=== PATIENT | male | born 1990 | race African-American/Black ===

== ENCOUNTER 2019-02-04 21:02 | Inpatient (IN) | payer SELFPAY ==
[~2019-02-04] VITALS: Ht 170.2 cm; Wt 68.0 kg
--- NOTE | 2019-02-04 21:26 | NUR ---
DR. MARIN IN TRIAGE FOR EVALUATION OF PT. NO ACUTE DISTRESS NOTED AT THIS TIME. PT HAS NO FURTHER QUESTIONS AT THIS TIME.
[2019-02-04] MEDS ORDERED: SODIUM CHLORIDE 0.9% 1000ML 1,000 ML IV SCH ×2 (21:45→23:15)
[2019-02-04 22:03] LABS: BASOPHILS # (AUTO) 0.1 (0.0-0.1); BASOPHILS % 0.4 % (0.0-1.0); EOSINOPHILS % 0.3 % (0.0-6.0); HEMATOCRIT 39.5 % (38.2-49.6); HEMOGLOBIN 13.4 g/dL (14.0-18.0); LYMPHOCYTES # (AUTO) 1.1 (1.0-3.2); MEAN CORPUSCULAR HEMOGLOBIN 30.5 pg (28-32); MEAN CORPUSCULAR HGB CONC 33.9 g/dL (31-35); MONOCYTES # (AUTO) 0.8 (0.2-0.8); MONOCYTES % 6.3 % (4.4-11.3); NEUTROPHILS # (AUTO) 10.4 (2.1-6.9); NEUTROPHILS % 83.5 % (38.7-80.0); PLATELET COUNT 317 x10e3/uL (140-360); RED BLOOD COUNT 4.39 x10e6/uL (4.3-5.7); RED CELL DISTRIBUTION WIDTH 12.1 % (11.7-14.4)
[2019-02-04 22:21] LABS: ALANINE AMINOTRANSFERASE 25 IU/L (0-55); ALBUMIN 4.4 g/dL (3.5-5.0); ALBUMIN/GLOBULIN RATIO 1.1 (0.8-2.0); ALKALINE PHOSPHATASE 77 IU/L (40-150); ANION GAP 18.1 mmol/L (8-16); BLOOD UREA NITROGEN 13 mg/dL (7-26); BUN/CREATININE RATIO 9 (6-25); CALCIUM 9.8 mg/dL (8.4-10.2); CARBON DIOXIDE 26 mmol/L (22-29); CHLORIDE 96 mmol/L (98-107); CREATINE KINASE 296 IU/L (30-200); CREATININE, SERUM 1.51 mg/dL (0.72-1.25); EST GLOMERULAR FILTRATION RATE > 60 ML/MIN (60-); GLUCOSE 153 mg/dL (74-118); POTASSIUM 4.1 mmol/L (3.5-5.1); SODIUM 136 mmol/L (136-145)
[2019-02-04 22:22] LABS: AMPHETAMINES SCREEN,URINE NEGATIVE (NEGATIVE); BENZODIAZEPINES SCREEN,URINE NEGATIVE (NEGATIVE); PHENCYCLIDINE SCREEN,URINE NEGATIVE (NEGATIVE)
[2019-02-04] MEDS ORDERED: KETOROLAC TROMETHAMINE 30 MG/ML VIAL IV STA (23:02)
[2019-02-04] MEDS ORDERED: DIAZEPAM 2 MG TAB PO ONE (23:15)
--- NOTE | 2019-02-04 23:20 | Diagnostic Imaging Report ---
EXAMINATION: CHEST 2 VIEWS INDICATION: Short of breath COMPARISON: None FINDINGS: PA and lateral views TUBES and LINES: None. LUNGS: Lungs are well inflated. Lungs are clear. There is no evidence of pneumonia or pulmonary edema. PLEURA: No pleural effusion or pneumothorax. HEART AND MEDIASTINUM: The cardiomediastinal silhouette is unremarkable. BONES AND SOFT TISSUES: No acute osseous lesion. Soft tissues are unremarkable. UPPER ABDOMEN: No free air under the diaphragm. IMPRESSION: No acute thoracic radiographic abnormality. Signed by: Jonathan Juares DO on 02/04/2019 11:17 PM
[2019-02-05] VITALS (10 sets, daily range): BP systolic 100–138; BP diastolic 58–78
[2019-02-05] MEDS ORDERED: ONDANSETRON HCL INJ 2MG/ML 2ML 2 MG/ML VIAL IV STA (00:51)
[2019-02-05] MEDS ORDERED: MORPHINE SULFATE 5 MG/ML VIAL IV ONE (00:55)
--- NOTE | 2019-02-05 00:58 | Diagnostic Imaging Report ---
EXAM: CT Chest WITH contrast (PE protocol) 02/04/2019 11:10 PM INDICATION: Chest pain , difficulty taking deep breath COMPARISON: None TECHNIQUE: Chest was scanned utilizing a multidetector helical scanner from the lung apex through the level of the adrenal glands with administration of IV contrast. Coronal and sagittal reformations were obtained. Pulmonary embolism protocol was performed. Thin slice reconstructions were created. IV CONTRAST: 100 mL of Isovue 370 COMPLICATIONS: None RADIATION DOSE: Total DLP: 514 mGy*cm Estimated effective dose: (DLP x 0.014 x size factor) mSv CTDIvol has been reviewed. It is below the limits set by the Radiation Protocol Committee (RPC). Dose modulation, iterative reconstruction, and/or weight based adjustment of the mA/kV was utilized to reduce the radiation dose to as low as reasonably achievable. FINDINGS: LINES/ TUBES: None. LUNGS AND AIRWAYS: Subtle left basilar atelectasis otherwise lungs are unremarkable. Airways are normal. PLEURA: The pleural spaces are clear. HEART AND MEDIASTINUM: The thyroid gland is normal. No mediastinal, hilar or axillary lymphadenopathy. The heart is normal in size. There is no pericardial effusion. UPPER ABDOMEN: A partially visualized large heterogeneous striated ill-defined mass in the expected area of the spleen, with surrounding blood dense fluid and stranding. Small volume of hemoperitoneum around the liver. BONES: The visualized bony thorax is within normal limits. SOFT TISSUES: Unremarkable. IMPRESSION: Findings compatible with splenic rupture with large left upper quadrant hematoma and surrounding hemorrhage and bilateral upper quadrant hemoperitoneum. Underlying malignancy cannot be excluded. The entirety of left upper abdominal pathology is not included within this chest CT. Findings discussed with Dr. Rose at 12:45 AM on 02/05/[address] Juares via telephone. Signed by: Jonathan Juares DO on 02/05/2019 12:55 AM
[2019-02-05] MEDS ORDERED: MORPHINE SULFATE INJ 4 MG/ML INJ 1ML IV ONE (01:00)
[2019-02-05 01:20] LABS: INR 0.92; PROTHROMBIN TIME 12.8 seconds (11.9-14.5)
--- NOTE | 2019-02-05 01:30 | NUR ---
DR. MARIN AT BEDSIDE TO EXTENSIVELY DISCUSS RESULTS OF TESTS AND PLAN OF CARE. PT VERBALIZES UNDERSTANDING OF PLAN OF CARE AND HAS NO FURTHER QUESTIONS TO ASK. NO ACUTE DISTRESS NOTED AT THIS TIME. PT SITTING UP IN BED.
--- OUTSIDE RECORDS SUMMARY | 2019-02-05 01:45 | XMS REPORT ---
Author Author [facility] Address Unknown Phone Unavailable Care Team Providers Care Scene And Lighting Design Lecturer Name Role Phone RANDY MARIN Unavailable Unavailable Problems This patient has no known problems. Allergies, Adverse Reactions, Alerts This patient has no known allergies or adverse reactions. Medications This patient has no known medications. Results Test Description Test Time Test Comments Text Results Atomic Results Result Comments CT CHEST W 2019-02-05 00:42:00 [place] [address] Patient Name: ASHLEY SOLOMON MR #: [id number] : 1990 Age/Sex: 28/M Req #: [id number] Adm Physician: Ordered by: RANDY MARIN DO Report #: [id number] Location: ER Room/Bed: Procedure: [id number] CT/CT CHEST W Exam Date: 02/04/19 Exam Time: 2347 REPORT STATUS: Signed EXAM: CT Chest WITH contrast (PE protocol) 02/04/2019 11:10 PM IND ICATION: Chest pain , difficulty taking deep breath COMPARISON: None TECHNIQUE: Chest was scanned utilizing a multidetector helical scanner from the lung apex through the level of the adrenal glands with administration of IV contrast. Coronal and sagittal reformations were obtained. Pulmonary embolism protocol was performed. Thin slice reconstructions were created. IV CONTRAST: 100 mL of Isovue 370 COMPLICATIONS: None RADIATION DOSE: Total DLP: 514 mGy*cm Estimated effective dose: (DLP x 0.014 x size factor) mSv CTDIvol has been reviewed. It is below the limits set by the Radiation Protocol Committee (RPC). Dose modulation, iterative reconstruction, and/or weight based adjustment of the mA/kV was utilized to reduce the radiation dose to as low as reasonably achievable. FINDINGS: LINES/ TUBES: None. LUNGS AND AIRWAYS: Subtle left basilar atelectasis otherwise lungs are unremarkable. Airways are normal. PLEURA: The pleural spaces are clear. HEART AND MEDIASTINUM: The thyroid gland is normal. No mediastinal, hilar or axillary lymphadenopathy. The heart is normal in size. There is no pericardial effusion. UPPER ABDOMEN: A partially visualized large heterogeneous striated ill-defined mass in the expected area of the spleen, with surrounding blood dense fluid and stranding. Small volume of hemoperitoneum around the liver. BONES: The visualized bony thorax is within normal limits. SOFT TISSUES: Unremarkable. IMPRESSION: Findings compatible with splenic rupture with large left upper quadrant hematoma and surrounding hemorrhage and bilateral upper quadrant hemoperitoneum. Underlying malignancy cannot be excluded. The entirety of left upper abdominal pathology is not included within this chest CT. Findings discussed with Dr. Marin at 12:45 AM on 02/05/[address] Juares via telephone. Signed by: Jonathan Juares DO on 02/05/2019 12:55 AM Dictated By: JONATHAN JUARES DO Transcribed By: LANDEN on 02/05/1952 COPY TO: RANDY MARIN DO CHEST 2 VIEWS 2019-02-04 23:17:00 [place] [address] Patient Name: ASHLEY SOLOMON MR #: [id number] : 1990 Age/Sex: 28/M Req #: [id number] Adm Physician: Ordered by: RANDY MARIN DO Report #: [id number] Location: ER Room/Bed: Procedure: [id number] DX/CHEST 2 VIEWS Exam Date: 02/04/19 Exam Time: 2200 REPORT STATUS: Signed EXAMINATION: CHEST 2 VIEWS INDICATION: Short of breath COMPARISON: None FINDINGS: PA and lateral views TUBES and LINES: None. LUNGS: Lungs are well inflated. Lungs are clear. There is no evidence of pneumonia or pulmonary edema. PLEURA: No pleural effusion or pneumothorax. HEART AND MEDIASTINUM: The cardiomediastinal silhouette is unremarkable. BONES AND SOFT TISSUES: No acute osseous lesion. Soft tissues are unremarkable. UPPER ABDOMEN: No free air under the diaphragm. IMPRESSION: No acute thoracic radiographic abnormality. Signed by: Jonathan Juares DO on 02/04/2019 11:17 PM Dictated By: JONATHAN JUARES DO 16 Transcribed By: LANDEN on 02/04/192316 COPY TO: RANDY MARIN DO
[2019-02-05 01:56] LABS: BASOPHILS % 0.1 % (0.0-1.0); EOSINOPHILS % 0.1 % (0.0-6.0); HEMATOCRIT 28.6 % (38.2-49.6); HEMOGLOBIN 9.7 g/dL (14.0-18.0); LYMPHOCYTES # (AUTO) 0.7 (1.0-3.2); LYMPHOCYTES % 7.5 % (18.0-39.1); MEAN CORPUSCULAR HEMOGLOBIN 30.8 pg (28-32); MEAN CORPUSCULAR HGB CONC 33.9 g/dL (31-35); MEAN CORPUSCULAR VOLUME 90.8 fL (81-99); MONOCYTES # (AUTO) 0.6 (0.2-0.8); MONOCYTES % 5.9 % (4.4-11.3); NEUTROPHILS # (AUTO) 8.4 (2.1-6.9); PLATELET COUNT 258 x10e3/uL (140-360); RED BLOOD COUNT 3.15 x10e6/uL (4.3-5.7); RED CELL DISTRIBUTION WIDTH 12.2 % (11.7-14.4)
[2019-02-05 01:57] LABS: CREATINE KINASE MB 1.4 ng/mL (0-5.0)
--- NOTE | 2019-02-05 02:29 | NUR ---
RECEIVED FROM ER, AWAKE AND ALERT, DENIES C/O PAIN OR DISCOMFORT. DENIES NAUSEA AT THIS TIME. TRANSFERRED SELF FROM STRETCHER TO BED. CHANGED FROM STREET CLOTHES TO HOSPITAL GOWN, CHG BATH GIVEN. ER DOCTOR INFORMING DR BELLO OF CHANGES TO LABS SINCE ADMISSION
--- NOTE | 2019-02-05 02:30 | NUR ---
0215: Dr. Rose speaking with Dr. Benitez regarding change in hemoglobin at this time and pt's HR and BP. Waiting further orders; no new orders rec'd at this time. ICU nurse notified of this during bedside report. Pt in no acute distress
[2019-02-05] MEDS ORDERED: INFLUENZA VIRUS VAC SPLIT INJ 0.5 ML SYR IM SCH (02:44)
[2019-02-05] MEDS ORDERED: PNEUMOCOCCAL VACCINE POLYVALENT 23 MCG/0.5 ML VIAL IM SCH (02:44)
[2019-02-05] MEDS ORDERED: SEROQUEL200 MG PEG (02:44)
[2019-02-05] MEDS ORDERED: PROZAC20 MG PO (02:44)
[2019-02-05] MEDS: ONDANSETRON HCL INJ 2MG/ML 2ML 2 MG/ML VIAL IV PRN (04:23)
[2019-02-05] MEDS: MORPHINE SULFATE 2 MG/ML SYR 1ML IV PRN ×2 (04:24→08:30)
--- NOTE | 2019-02-05 04:24 | NUR ---
PATIENT WOKE UP AND C/O PAIN IN ABDOMEN AT THIS TIME, ALSO C/O NAUSEA, ORDERS OBTAINED FROM D[facility]I NO FOR MORPHINE AND ZOFRAN. PATIENT AMBULATED TO RESTROOM AND VOIDED IN TOILET. AFTER RETURNING TO BED MEDICATED WITH IV MORPHINE AND ZOFRAN PER PRN ORDERS
[2019-02-05 04:38] LABS: BAND NEUTROPHILS % (MANUAL) 10 %; HYPOCHROMASIA SLIGHT; LYMPHOCYTES % (MANUAL) 5 % (19-48); MONOCYTES % (MANUAL) 5 % (3.4-9.0); NEUTROPHILS % (MANUAL) 80 % (40-74); PLATELET ESTIMATE ADEQUATE; PLATELET MORPHOLOGY COMMENT NORMAL; POIKILOCYTOSIS SLIGHT
[2019-02-05 05:25] LABS: BASOPHILS % 0.1 % (0.0-1.0); HEMATOCRIT 28.3 % (38.2-49.6); HEMOGLOBIN 9.4 g/dL (14.0-18.0); LYMPHOCYTES # (AUTO) 0.8 (1.0-3.2); LYMPHOCYTES % 8.2 % (18.0-39.1); MEAN CORPUSCULAR HEMOGLOBIN 30.1 pg (28-32); MEAN CORPUSCULAR HGB CONC 33.2 g/dL (31-35); MEAN CORPUSCULAR VOLUME 90.7 fL (81-99); MONOCYTES # (AUTO) 0.5 (0.2-0.8); MONOCYTES % 5.6 % (4.4-11.3); NEUTROPHILS # (AUTO) 8.2 (2.1-6.9); NEUTROPHILS % 85.8 % (38.7-80.0); PLATELET COUNT 257 x10e3/uL (140-360); RED BLOOD COUNT 3.12 x10e6/uL (4.3-5.7); RED CELL DISTRIBUTION WIDTH 12.2 % (11.7-14.4)
[2019-02-05 05:50] LABS: CREATINE KINASE MB 1.5 ng/mL (0-5.0)
[2019-02-05] MEDS ORDERED: SODIUM CHLORIDE 0.9% 250ML 250 ML IV ONE ×3 (08:00→19:45)
[2019-02-05] MEDS ORDERED: FLUOXETINE HCL 20 MG CAP PO ONE (08:15)
[2019-02-05 08:48] LABS: BASOPHILS % 0.1 % (0.0-1.0); EOSINOPHILS % 0.1 % (0.0-6.0); HEMATOCRIT 25.9 % (38.2-49.6); HEMOGLOBIN 8.9 g/dL (14.0-18.0); LYMPHOCYTES # (AUTO) 1.2 (1.0-3.2); LYMPHOCYTES % 14.2 % (18.0-39.1); MEAN CORPUSCULAR HEMOGLOBIN 30.9 pg (28-32); MEAN CORPUSCULAR HGB CONC 34.4 g/dL (31-35); MEAN CORPUSCULAR VOLUME 89.9 fL (81-99); MONOCYTES # (AUTO) 0.8 (0.2-0.8); MONOCYTES % 9.5 % (4.4-11.3); NEUTROPHILS # (AUTO) 6.6 (2.1-6.9); NEUTROPHILS % 75.6 % (38.7-80.0); PLATELET COUNT 250 x10e3/uL (140-360); RED BLOOD COUNT 2.88 x10e6/uL (4.3-5.7); RED CELL DISTRIBUTION WIDTH 12.2 % (11.7-14.4)
--- NOTE | 2019-02-05 09:51 | NUR ---
PROVIDED SELF PAY PACKET TO FOLLOW UP WITH [facility] NEEDED
[2019-02-05] MEDS: LEVOFLOXACIN 500MG/D5W 100ML 100 ML IV SCH (12:59)
[2019-02-05] MEDS: HYDROCODONE/APAP 7.5MG-325MG 1 EA TAB PO PRN ×3 (12:59→21:35)
[2019-02-05] MEDS: LACTATED RINGER'S 1,000 ML IV SCH (12:59)
[2019-02-05] MEDS ORDERED: ACETAMINOPHEN 1000 MG/100 ML IV ONE (14:33)
[2019-02-05] MEDS ORDERED: DEXAMETHASONE SOD PHOS INJ 4 MG/ML VIAL ONE (14:33)
[2019-02-05] MEDS ORDERED: ONDANSETRON HCL INJ 2MG/ML 2ML 2 MG/ML VIAL ONE (14:33)
[2019-02-05] MEDS ORDERED: LIDOCAINE HCL 2% LOCAL INJ 5 ML SDV VIAL INJ ONE (14:33)
[2019-02-05] MEDS ORDERED: PROPOFOL IV EMULSION 10 MG/ML 20 ML VIAL ONE (14:33)
[2019-02-05] MEDS ORDERED: NEOSTIGMINE 5 MG/5ML SYR ONE (14:33)
[2019-02-05] MEDS ORDERED: ROCURONIUM BROMIDE 10 MG/ML 5ML VIAL ONE (14:33)
[2019-02-05] MEDS ORDERED: SEVOFLURANE INHAL SOLN 250 ML PEN BTL ONE (14:33)
[2019-02-05] MEDS ORDERED: GLYCOPYRROLATE INJ 1MG/ 5 ML SYR ONE (14:33)
[2019-02-05 15:59] LABS: BASOPHILS % 0.2 % (0.0-1.0); EOSINOPHILS % 0.7 % (0.0-6.0); HEMOGLOBIN 7.2 g/dL (14.0-18.0); LYMPHOCYTES # (AUTO) 1.3 (1.0-3.2); LYMPHOCYTES % 20.5 % (18.0-39.1); MEAN CORPUSCULAR HEMOGLOBIN 30.8 pg (28-32); MEAN CORPUSCULAR HGB CONC 34.3 g/dL (31-35); MEAN CORPUSCULAR VOLUME 89.7 fL (81-99); MONOCYTES # (AUTO) 0.8 (0.2-0.8); MONOCYTES % 12.4 % (4.4-11.3); NEUTROPHILS # (AUTO) 4.1 (2.1-6.9); NEUTROPHILS % 65.9 % (38.7-80.0); PLATELET COUNT 187 x10e3/uL (140-360); RED BLOOD COUNT 2.34 x10e6/uL (4.3-5.7); RED CELL DISTRIBUTION WIDTH 12.1 % (11.7-14.4)
--- NOTE | 2019-02-05 16:45 | NUR ---
RECEIVED LAB RESULTS BACK, NOTIFIED OF RESULTS RECEIVED ORDERS. Addendum: 02/05/19 at 1742 by Nya Curry RN ORDERED TO GIVE 2 UNITS PRBC AT THIS TIME
--- NOTE | 2019-02-05 17:00 | NUR ---
NOTIFIED OF PTS INTEREST IN BEING TRANSFERRED TO LATTER DAY PT OKAY TO CONTINUE MOVING FORWARD WITH POC HERE UNLESS HE GETS ACCEPTED, WILL NOTIFY MD OF ANY CHANGES.
[2019-02-05] MEDS ORDERED: SODIUM CHLORIDE 0.9% 250ML 250 ML ONE (17:16)
[2019-02-05] MEDS: DOCUSATE SODIUM 100 MG CAP PO SCH (17:35)
--- NOTE | 2019-02-05 17:35 | NUR ---
PT STATES HE WILL THINK ABOUT THE TRANSFER AND NOTIFY THIS RN IF HE STILL WANTS TO, STATES HE WOULD NOT PROVIDE AN ACCEPTING PHYSICIAN AFTER ALL AND WOULD BE GOING GOING THROUGH TRANSFER CENTER WITHOUT ONE IF THAT IS WHAT HE DECIDES. WILL NOTIFY CHILD NUTRITION ASSISTANT IF PATIENT HAS INTENT MOVING FORWARD WITH PROCESS.
--- NOTE | 2019-02-05 17:51 | Consultation ---
DATE OF CONSULTATION: Pulmonary Critical Care Consultation CHIEF COMPLAINT: Anemia secondary to acute blood loss and splenic hemorrhage. HISTORY OF PRESENT ILLNESS: The patient is a 28-year-old man. He has no prior medical history. Several days ago, he noticed some abdominal pain. It was on his left side and radiating up into his chest. When he came to the emergency department, he was found to be anemic. A CT scan showed an enlarged spleen with a splenic hematoma. He subsequently received blood transfusions in the ICU. PAST SURGICAL HISTORY: Noncontributory. PAST MEDICAL HISTORY: Noncontributory. ALLERGIES: PENICILLIN. SOCIAL HISTORY: The patient is not a smoker. He is not a drinker. He does not recall any trauma. FAMILY HISTORY: Noncontributory. REVIEW OF SYSTEMS: The patient denies fever. He is not having headache. He denies any prior history of sore throat. He does not have chest pain. He does not have dyspnea. He did have some abdominal pain radiating up into his chest. He has no nausea or vomiting. He has no leg edema. He does have some eczema. PHYSICAL EXAMINATION: VITAL SIGNS: The patient is afebrile. The vital signs are stable. HEENT: No facial swelling or erythema. CARDIAC: Reveals a regular rate and rhythm with normal S1 and S2. There are no murmurs or rubs heard. LUNGS: Auscultation of lungs shows clear breath sounds bilaterally. There is no wheezing. ABDOMEN: Some left upper quadrant tenderness. There is no rebound or guarding. EXTREMITIES: No leg edema or calf tenderness. IMPRESSION: 1. Anemia secondary to acute blood loss. 2. Spontaneous splenic rupture and hematoma. PLAN: 1. The patient will receive additional packed red blood cells. 2. Continue to monitor CBC. 3. Continue conservative management, unless the patient becomes hemodynamically unstable. 4. If the patient does become today hemodynamically unstable, then a splenectomy will be required. 5. Monospot and evaluation for prior viral illness. Efrain Brandt MD [facility]L /[id number]
--- NOTE | 2019-02-05 18:19 | NUR ---
SPOKE TO PATIENT REGARDING POC, PT STATES HE WANTS TO CANCEL THE TRANSFER AT THIS TIME. WILL CONTINUE TO MONITOR CLOSELY
--- NOTE | 2019-02-05 18:27 | Consultation ---
DATE OF CONSULTATION: 02/05/2019 CHIEF COMPLAINT: Abdominal pain. HISTORY OF PRESENT ILLNESS: The patient is a 28-year-old male with abdominal pain in the upper abdomen towards the left side for approximately 5 days, which has been progressively worse. The patient has pain in the left shoulder also. He denied fever or chills. No vomiting, but appetite has decreased. He has normal bowel movement. The patient denies history of trauma or recent infection, flu, or cold. PAST MEDICAL HISTORY: Unremarkable. PAST SURGICAL HISTORY: He had no prior surgery. SOCIAL HABITS: The patient denies alcohol abuse or smoking. REVIEW OF SYSTEMS: As mentioned in HPI. PHYSICAL EXAMINATION: VITAL SIGNS: His blood pressure is 116/74, pulse 106, temperature 98. GENERAL: He is awake, alert, in moderate discomfort. HEENT: Sclerae are anicteric. NECK: Supple. LUNGS: Clear with some decreased at the bases. HEART: Regular rate and rhythm. ABDOMEN: Mildly distended with guarding in the left upper quadrant without rebound. EXTREMITIES: No cyanosis or edema. LABORATORY DATA: White cell count is 8.6, hemoglobin of 8.9 from a high of 13, platelet count is 250. Creatinine 1.5. INR of 0.9. CT of the chest show a splenic rupture with left upper quadrant hematoma. Underlying malignancy cannot be excluded. ASSESSMENT: Splenic rupture of unknown etiology. PLAN: Monitor H and H every 6 hours. The patient may need transfusion. If there is evidence of active ongoing bleeding, then splenectomy will follow. Jack Benitez MD [facility]L /[id number]
[2019-02-05] MEDS ORDERED: IOPAMIDOL 370 MG/ML 200 ML INFUS..BTL INJ ONE (20:56)
[2019-02-05] MEDS ORDERED: SODIUM CHLORIDE 0.9% 50ML 50 ML ONE (20:56)
[2019-02-05] MEDS: QUETIAPINE FUMARATE 100 MG TAB PO SCH (23:42)
[2019-02-06] VITALS (17 sets, daily range): BP systolic 104–133; BP diastolic 54–94
[2019-02-06 00:47] LABS: BASOPHILS % 0.2 % (0.0-1.0); EOSINOPHILS % 0.7 % (0.0-6.0); HEMATOCRIT 23.7 % (38.2-49.6); HEMOGLOBIN 8.2 g/dL (14.0-18.0); LYMPHOCYTES # (AUTO) 1.1 (1.0-3.2); LYMPHOCYTES % 17.6 % (18.0-39.1); MEAN CORPUSCULAR HEMOGLOBIN 30.9 pg (28-32); MEAN CORPUSCULAR HGB CONC 34.6 g/dL (31-35); MEAN CORPUSCULAR VOLUME 89.4 fL (81-99); MONOCYTES # (AUTO) 0.7 (0.2-0.8); MONOCYTES % 11.4 % (4.4-11.3); NEUTROPHILS # (AUTO) 4.3 (2.1-6.9); NEUTROPHILS % 69.8 % (38.7-80.0); PLATELET COUNT 134 x10e3/uL (140-360); RED BLOOD COUNT 2.65 x10e6/uL (4.3-5.7); RED CELL DISTRIBUTION WIDTH 12.4 % (11.7-14.4)
--- NOTE | 2019-02-06 00:58 | NUR ---
SPOKE WITH DR. BELLO REGARDING H&H RECHECK AFTER TRANSFUSION OF 2 UNITS PRBC'S, NEW ORDER TO GIVE ANOTHER UNIT PRBC.
[2019-02-06] MEDS ORDERED: SODIUM CHLORIDE 0.9% 250ML 250 ML IV ONE (01:00)
[2019-02-06 05:58] LABS: BASOPHILS % 0.2 % (0.0-1.0); EOSINOPHILS # (AUTO) 0.1 (0.0-0.4); EOSINOPHILS % 1.1 % (0.0-6.0); HEMATOCRIT 23.5 % (38.2-49.6); HEMOGLOBIN 8.2 g/dL (14.0-18.0); LYMPHOCYTES % 18.4 % (18.0-39.1); MEAN CORPUSCULAR HEMOGLOBIN 31.1 pg (28-32); MEAN CORPUSCULAR HGB CONC 34.9 g/dL (31-35); MONOCYTES # (AUTO) 0.7 (0.2-0.8); MONOCYTES % 12.5 % (4.4-11.3); NEUTROPHILS # (AUTO) 3.7 (2.1-6.9); NEUTROPHILS % 67.6 % (38.7-80.0); PLATELET COUNT 125 x10e3/uL (140-360); RED BLOOD COUNT 2.64 x10e6/uL (4.3-5.7); RED CELL DISTRIBUTION WIDTH 12.5 % (11.7-14.4)
[2019-02-06 06:10] LABS: ALANINE AMINOTRANSFERASE 14 IU/L (0-55); ALBUMIN 3.2 g/dL (3.5-5.0); ALBUMIN/GLOBULIN RATIO 1.2 (0.8-2.0); ALKALINE PHOSPHATASE 47 IU/L (40-150); ANION GAP 8.2 mmol/L (8-16); BLOOD UREA NITROGEN 15 mg/dL (7-26); BUN/CREATININE RATIO 11 (6-25); CALCIUM 8.2 mg/dL (8.4-10.2); CARBON DIOXIDE 29 mmol/L (22-29); CHLORIDE 102 mmol/L (98-107); CREATININE, SERUM 1.35 mg/dL (0.72-1.25); EST GLOMERULAR FILTRATION RATE > 60 ML/MIN (60-); GLUCOSE 102 mg/dL (74-118); POTASSIUM 4.2 mmol/L (3.5-5.1); SODIUM 135 mmol/L (136-145)
[2019-02-06] MEDS: LACTATED RINGER'S 1,000 ML IV SCH ×3 (06:41→17:22)
[2019-02-06] MEDS ORDERED: THROMBIN FOR SOLN 5,000 UNIT VIAL ONE (08:48)
[2019-02-06] MEDS ORDERED: HYDROMORPHONE 1MG/1ML INJ ONE ×2 (09:48→10:09)
--- NOTE | 2019-02-06 10:09 | Operative Report ---
DATE OF PROCEDURE: 02/06/2019 SURGEON: Jack Benitez MD PREOPERATIVE DIAGNOSIS: Splenic rupture. POSTOPERATIVE DIAGNOSIS: Splenic rupture. OPERATIVE PROCEDURE: Exploratory laparotomy, splenic repair. ANESTHESIA: General, Dr. Carlin. INDICATION: A 28-year-old male with history of abdominal pain for one week with CT scan showing evidence of splenic rupture. The patient has consented for exploratory laparotomy with splenectomy with all attendant risks discussed. DESCRIPTION OF PROCEDURE: The patient was brought to the OR, intubated. The abdomen was then prepped and draped in sterile fashion. A left subcostal incision was made through the abdominal wall muscle and peritoneal cavity was entered. A large amount of intraperitoneal blood was encountered. We evacuated approximately 2 L of thin blood and approximately 1 L of blood clots from the left upper quadrant at the splenic area. We then mobilized the spleen into the operative field dividing the splenocolic ligament and phrenosplenic ligaments with the LigaSure instrument and there was a large avulsion of the entire capsule of the spleen with active bleeding from the splenic parenchyma. There was also a large bleeding vessel from the superior pole of the spleen. We then proceeded to use Surgicel as a pledget and the bleeding vessel was suture ligated with a horizontal mattress stitches of 2-0 Vicryl. A large piece of Surgicel and Gelfoam were then placed on the surface of the spleen to achieve hemostasis, which was achieved with combination of Surgicel and pressure. Operative field was then irrigated with copious saline solution. Hemostasis achieved. We placed a 19-Congolese Terrance drain in the left upper quadrant and taken out through a separate stab incision in the left lower quadrant. The omentum was then brought over to cover the entire spleen surface in the left upper quadrant and anchored in place with 2-0 Vicryl stitch to the diaphragm and stomach. At this point, we proceeded to close the abdomen by approximating the posterior fascia with a running #0 Vicryl and the anterior fascia with a running #0 PDS. Skin closed with elisha. The patient was extubated and transported to recovery room in guarded condition. Total blood loss 3+ L, transfusion 3 units of packed cells and 1 unit of FFP. Jack Benitez MD [facility]/MODL /[id number]
--- NOTE | 2019-02-06 11:00 | NUR ---
Patient to room 191 from PACU. Patient c/o 8/[address] Benitez made aware. Orders rec'd. Patient's mom, significant other at bedside. 60 mL serosanguineous drainage from CHRISTINE emptied.
[2019-02-06] MEDS: ONDANSETRON HCL INJ 2MG/ML 2ML 2 MG/ML VIAL IV PRN ×2 (11:07→20:09)
[2019-02-06] MEDS: HYDROMORPHONE 1MG/1ML INJ IV PRN ×3 (11:07→20:09)
[2019-02-06 12:46] LABS: BASOPHILS % 0.2 % (0.0-1.0); HEMOGLOBIN 9.8 g/dL (14.0-18.0); LYMPHOCYTES # (AUTO) 0.3 (1.0-3.2); LYMPHOCYTES % 3.6 % (18.0-39.1); MEAN CORPUSCULAR HEMOGLOBIN 29.7 pg (28-32); MEAN CORPUSCULAR HGB CONC 33.8 g/dL (31-35); MEAN CORPUSCULAR VOLUME 87.9 fL (81-99); MONOCYTES # (AUTO) 0.6 (0.2-0.8); MONOCYTES % 6.5 % (4.4-11.3); NEUTROPHILS # (AUTO) 8.2 (2.1-6.9); NEUTROPHILS % 89.5 % (38.7-80.0); PLATELET COUNT 151 x10e3/uL (140-360); RED CELL DISTRIBUTION WIDTH 13.8 % (11.7-14.4)
[2019-02-06] MEDS: LEVOFLOXACIN 500MG/D5W 100ML 100 ML IV SCH (14:25)
[2019-02-06] MEDS: HYDROCODONE/APAP 7.5MG-325MG 1 EA TAB PO PRN ×3 (14:33→22:48)
[2019-02-06] MEDS: DOCUSATE SODIUM 100 MG CAP PO SCH ×2 (14:40→17:08)
[2019-02-06] MEDS: FLUOXETINE HCL 20 MG CAP PO SCH (14:40)
[2019-02-06] MEDS ORDERED: LORAZEPAM INJ 2 MG/ML VIAL IV PRN (17:15)
[2019-02-06 18:24] LABS: BASOPHILS % 0.1 % (0.0-1.0); HEMATOCRIT 28.1 % (38.2-49.6); HEMOGLOBIN 9.8 g/dL (14.0-18.0); LYMPHOCYTES # (AUTO) 0.4 (1.0-3.2); LYMPHOCYTES % 4.6 % (18.0-39.1); MEAN CORPUSCULAR HEMOGLOBIN 30.3 pg (28-32); MEAN CORPUSCULAR HGB CONC 34.9 g/dL (31-35); MONOCYTES # (AUTO) 0.6 (0.2-0.8); MONOCYTES % 7.3 % (4.4-11.3); NEUTROPHILS # (AUTO) 7.6 (2.1-6.9); NEUTROPHILS % 87.7 % (38.7-80.0); PLATELET COUNT 166 x10e3/uL (140-360); RED BLOOD COUNT 3.23 x10e6/uL (4.3-5.7); RED CELL DISTRIBUTION WIDTH 14.1 % (11.7-14.4)
[2019-02-06] MEDS ORDERED: MIDAZOLAM HCL 2 MG/2 ML VIAL ONE (19:22)
[2019-02-06] MEDS ORDERED: FENTANYL CITRATE/PF 100MCG/2 ML INJ ONE (19:22)
[2019-02-06] MEDS: QUETIAPINE FUMARATE 100 MG TAB PO SCH (22:48)
[2019-02-07] VITALS (23 sets, daily range): BP systolic 112–152; BP diastolic 65–93
[2019-02-07] MEDS: HYDROMORPHONE 1MG/1ML INJ IV PRN ×4 (00:22→22:30)
[2019-02-07] MEDS: HYDROCODONE/APAP 7.5MG-325MG 1 EA TAB PO PRN (02:55)
[2019-02-07] MEDS: MORPHINE SULFATE 2 MG/ML SYR 1ML IV PRN (04:10)
[2019-02-07] MEDS: ONDANSETRON HCL INJ 2MG/ML 2ML 2 MG/ML VIAL IV PRN (04:10)
[2019-02-07] MEDS: LACTATED RINGER'S 1,000 ML IV SCH ×4 (04:30→20:24)
[2019-02-07 05:30] LABS: BASOPHILS % 0.1 % (0.0-1.0); EOSINOPHILS % 0.1 % (0.0-6.0); HEMATOCRIT 27.1 % (38.2-49.6); HEMOGLOBIN 9.3 g/dL (14.0-18.0); LYMPHOCYTES # (AUTO) 0.7 (1.0-3.2); LYMPHOCYTES % 7.4 % (18.0-39.1); MEAN CORPUSCULAR HEMOGLOBIN 29.8 pg (28-32); MEAN CORPUSCULAR HGB CONC 34.3 g/dL (31-35); MEAN CORPUSCULAR VOLUME 86.9 fL (81-99); MONOCYTES % 9.8 % (4.4-11.3); NEUTROPHILS % 82.2 % (38.7-80.0); PLATELET COUNT 177 x10e3/uL (140-360); RED BLOOD COUNT 3.12 x10e6/uL (4.3-5.7); RED CELL DISTRIBUTION WIDTH 13.9 % (11.7-14.4)
[2019-02-07 05:54] LABS: BLOOD UREA NITROGEN 11 mg/dL (7-26); BUN/CREATININE RATIO 11 (6-25); CALCIUM 8.3 mg/dL (8.4-10.2); CARBON DIOXIDE 27 mmol/L (22-29); CHLORIDE 98 mmol/L (98-107); CREATININE, SERUM 1.04 mg/dL (0.72-1.25); EST GLOMERULAR FILTRATION RATE > 60 ML/MIN (60-); GLUCOSE 105 mg/dL (74-118); SODIUM 133 mmol/L (136-145)
[2019-02-07] MEDS ORDERED: PROMETHAZINE 25MG/ NS 50ML (IV) IV PRN ×2 (06:15→06:30)
[2019-02-07] MEDS: DOCUSATE SODIUM 100 MG CAP PO SCH ×2 (08:44→16:59)
[2019-02-07] MEDS: FLUOXETINE HCL 20 MG CAP PO SCH (08:44)
[2019-02-07] MEDS ORDERED: ONDANSETRON HCL INJ 2MG/ML 2ML 2 MG/ML VIAL IV ONE (09:20)
[2019-02-07] MEDS: FAMOTIDINE 20 MG/2 ML VIAL IV SCH ×2 (10:02→16:59)
[2019-02-07] MEDS: METOCLOPRAMIDE HCL 10 MG/2ML VIAL IV SCH ×3 (10:02→20:24)
[2019-02-07] MEDS ORDERED: HYDRALAZINE HCL 20 MG/ML VIAL IV PRN (10:30)
[2019-02-07] MEDS ORDERED: ACETAMINOPHEN 1000 MG/100 ML IV PRN (10:30)
[2019-02-07] MEDS: LEVOFLOXACIN 500MG/D5W 100ML 100 ML IV SCH (13:25)
[2019-02-07] MEDS ORDERED: PROMETHAZINE 12.5MG/ NACL 0.9% 50 ML IV PRN (15:45)
[2019-02-07] MEDS: QUETIAPINE FUMARATE 100 MG TAB PO SCH (20:24)
[2019-02-08] VITALS (14 sets, daily range): BP systolic 110–129; BP diastolic 58–87
[2019-02-08] MEDS: METOCLOPRAMIDE HCL 10 MG/2ML VIAL IV SCH ×4 (02:30→21:00)
[2019-02-08] MEDS: LACTATED RINGER'S 1,000 ML IV SCH ×2 (04:18→11:47)
[2019-02-08] MEDS: HYDROMORPHONE 1MG/1ML INJ IV PRN ×3 (06:21→19:06)
[2019-02-08] MEDS: FAMOTIDINE 20 MG/2 ML VIAL IV SCH ×2 (08:12→17:10)
[2019-02-08] MEDS: FLUOXETINE HCL 20 MG CAP PO SCH (08:12)
[2019-02-08] MEDS: DOCUSATE SODIUM 100 MG CAP PO SCH ×2 (08:12→17:10)
[2019-02-08] MEDS: LEVOFLOXACIN 500MG/D5W 100ML 100 ML IV SCH (12:26)
[2019-02-08] MEDS: HYDROCODONE/APAP 7.5MG-325MG 1 EA TAB PO PRN (15:41)
[2019-02-08] MEDS: D5.45%NS/KCL 20MEQ 1,000 ML IV SCH (17:59)
[2019-02-08] MEDS: ONDANSETRON HCL INJ 2MG/ML 2ML 2 MG/ML VIAL IV PRN (19:06)
[2019-02-08] MEDS: QUETIAPINE FUMARATE 100 MG TAB PO SCH (21:00)
[2019-02-09] VITALS (7 sets, daily range): BP systolic 105–133; BP diastolic 70–89
[2019-02-09] MEDS: D5.45%NS/KCL 20MEQ 1,000 ML IV SCH ×2 (00:32→14:15)
[2019-02-09] MEDS: HYDROMORPHONE 1MG/1ML INJ IV PRN ×3 (00:33→16:50)
[2019-02-09] MEDS: METOCLOPRAMIDE HCL 10 MG/2ML VIAL IV SCH ×4 (03:00→21:23)
[2019-02-09 05:21] LABS: BASOPHILS % 0.6 % (0.0-1.0); EOSINOPHILS # (AUTO) 0.1 (0.0-0.4); EOSINOPHILS % 1.7 % (0.0-6.0); HEMATOCRIT 26.1 % (38.2-49.6); HEMOGLOBIN 8.7 g/dL (14.0-18.0); LYMPHOCYTES # (AUTO) 1.6 (1.0-3.2); LYMPHOCYTES % 24.3 % (18.0-39.1); MEAN CORPUSCULAR HEMOGLOBIN 29.6 pg (28-32); MEAN CORPUSCULAR HGB CONC 33.3 g/dL (31-35); MEAN CORPUSCULAR VOLUME 88.8 fL (81-99); MONOCYTES # (AUTO) 0.8 (0.2-0.8); MONOCYTES % 11.9 % (4.4-11.3); NEUTROPHILS # (AUTO) 3.9 (2.1-6.9); NEUTROPHILS % 60.7 % (38.7-80.0); PLATELET COUNT 239 x10e3/uL (140-360); RED BLOOD COUNT 2.94 x10e6/uL (4.3-5.7); RED CELL DISTRIBUTION WIDTH 13.5 % (11.7-14.4)
[2019-02-09 05:53] LABS: ANION GAP 10.4 mmol/L (8-16); BLOOD UREA NITROGEN 9 mg/dL (7-26); BUN/CREATININE RATIO 7 (6-25); CALCIUM 8.3 mg/dL (8.4-10.2); CARBON DIOXIDE 30 mmol/L (22-29); CHLORIDE 99 mmol/L (98-107); CREATININE, SERUM 1.24 mg/dL (0.72-1.25); EST GLOMERULAR FILTRATION RATE > 60 ML/MIN (60-); GLUCOSE 98 mg/dL (74-118); MAGNESIUM 2.1 MG/DL (1.3-2.1); POTASSIUM 4.4 mmol/L (3.5-5.1); SODIUM 135 mmol/L (136-145)
[2019-02-09] MEDS: HYDROCODONE/APAP 7.5MG-325MG 1 EA TAB PO PRN (06:34)
--- NOTE | 2019-02-09 07:00 | NUR ---
BEDSIDE ROUNDS COMPLETE NO DISTRESS NOTED, DENIES PAIN AT THIS TIME, IVF INFUSING TO L AC 20G NO SS OF INFILTRATION NOTED, DSG TO LATERAL LUQ INTACT, CHRISTINE DRAIN WITH SEROSANGUINEOUS FLUID NOTED,DENEIS PAIN AT THIS TIME, NO OTHER CO VOICED CALL LIGHT IN REACH WILL CONTINUE TO MONITOR
[2019-02-09] MEDS: FLUOXETINE HCL 20 MG CAP PO SCH (08:35)
[2019-02-09] MEDS: FAMOTIDINE 20 MG/2 ML VIAL IV SCH ×2 (08:35→16:50)
[2019-02-09] MEDS: ONDANSETRON HCL INJ 2MG/ML 2ML 2 MG/ML VIAL IV PRN ×2 (08:35→16:50)
[2019-02-09] MEDS: DOCUSATE SODIUM 100 MG CAP PO SCH ×2 (08:35→16:50)
--- NOTE | 2019-02-09 12:40 | NUR ---
SPOKE WITH DR BELLO RE: CLEARANCE FOR DISCHARGE, INFORMED THIS NURSE POSSIBLY TOMORROW DUE TO PT HAS HAD NO BM YET BUT IS PASSING GAS, ENCOURAGED PT TO AMBULATE.
--- NOTE | 2019-02-09 12:53 | NUR ---
INFORMED NIMISHA BERGER RE: SURGEON (DR BELLO) STATES POSSIBLE DC TOMORROW.
[2019-02-09] MEDS ORDERED: LEVOFLOXACIN 500 MG TAB PO SCH (13:00)
--- NOTE | 2019-02-09 14:00 | NUR ---
AMBULATING HALLS PT TOLERATED WELL,
--- NOTE | 2019-02-09 17:30 | NUR ---
AMBULATING HALLS, NO DISTRESS NOTED,
--- NOTE | 2019-02-09 19:00 | NUR ---
Report received. Assumed care. Assessment done. See interventions.
[2019-02-09] MEDS ORDERED: ONDANSETRON HCL 4 MG ORAL DISINTEGRATING TAB PO PRN (19:30)
[2019-02-09] MEDS: QUETIAPINE FUMARATE 100 MG TAB PO SCH (21:23)
[2019-02-10] VITALS: BP 117/63
[2019-02-10] MEDS: D5.45%NS/KCL 20MEQ 1,000 ML IV SCH ×2 (01:25→08:38)
[2019-02-10] MEDS: METOCLOPRAMIDE HCL 10 MG/2ML VIAL IV SCH ×2 (03:30→08:38)
[2019-02-10 04:00] VITALS: BP 109/63
[2019-02-10 05:27] LABS: BASOPHILS # (AUTO) 0.1 (0.0-0.1); BASOPHILS % 0.9 % (0.0-1.0); EOSINOPHILS # (AUTO) 0.2 (0.0-0.4); EOSINOPHILS % 2.8 % (0.0-6.0); HEMATOCRIT 26.3 % (38.2-49.6); HEMOGLOBIN 8.8 g/dL (14.0-18.0); LYMPHOCYTES # (AUTO) 1.2 (1.0-3.2); MEAN CORPUSCULAR HEMOGLOBIN 29.5 pg (28-32); MEAN CORPUSCULAR HGB CONC 33.5 g/dL (31-35); MEAN CORPUSCULAR VOLUME 88.3 fL (81-99); MONOCYTES # (AUTO) 0.7 (0.2-0.8); MONOCYTES % 12.6 % (4.4-11.3); NEUTROPHILS # (AUTO) 3.7 (2.1-6.9); NEUTROPHILS % 63.2 % (38.7-80.0); PLATELET COUNT 283 x10e3/uL (140-360); RED BLOOD COUNT 2.98 x10e6/uL (4.3-5.7); RED CELL DISTRIBUTION WIDTH 13.1 % (11.7-14.4)
[2019-02-10] MEDS ORDERED: ZOFRAN4 MG PO (05:33)
[2019-02-10] MEDS ORDERED: TYLENOL WITH C1 EACH PO (05:33)
[2019-02-10] MEDS ORDERED: REGLAN10 MG PO (05:33)
[2019-02-10] MEDS ORDERED: LEVAQUIN500 MG PO (05:33)
[2019-02-10 05:55] LABS: ANION GAP 12.3 mmol/L (8-16); BLOOD UREA NITROGEN 7 mg/dL (7-26); BUN/CREATININE RATIO 6 (6-25); CALCIUM 8.2 mg/dL (8.4-10.2); CARBON DIOXIDE 27 mmol/L (22-29); CHLORIDE 102 mmol/L (98-107); CREATININE, SERUM 1.23 mg/dL (0.72-1.25); EST GLOMERULAR FILTRATION RATE > 60 ML/MIN (60-); GLUCOSE 97 mg/dL (74-118); MAGNESIUM 1.9 MG/DL (1.3-2.1); POTASSIUM 4.3 mmol/L (3.5-5.1); SODIUM 137 mmol/L (136-145)
[2019-02-10 07:28] VITALS: BP 102/65
[2019-02-10 07:29] VITALS: BP 102/65
[2019-02-10] MEDS: FLUOXETINE HCL 20 MG CAP PO SCH (08:38)
[2019-02-10] MEDS: DOCUSATE SODIUM 100 MG CAP PO SCH (08:38)
[2019-02-10] MEDS: HYDROCODONE/APAP 7.5MG-325MG 1 EA TAB PO PRN (08:38)
[2019-02-10] MEDS: FAMOTIDINE 20 MG/2 ML VIAL IV SCH (08:38)
[2019-02-10 11:55] VITALS: BP 126/78
--- NOTE | 2019-02-10 12:16 | NUR ---
CHRISTINE DRAIN REMOVED, IN TACT. REVIEWED DC INSTRUCTIONS AND FOLLOW UP WITH PT AND GIRLFRIEND, VERBALIZED UNDERSTANDING. PT DC STABLE.
--- NOTE | 2019-02-11 18:17 | Discharge Summary ---
ADMISSION DIAGNOSES: 1. Splenic rupture/hemoperitoneum. 2. Bipolar depression. DISCHARGE DIAGNOSES: 1. Splenic rupture/hemoperitoneum. 2. Bipolar depression. HISTORY: Eczema, bipolar depression. PAST SURGICAL HISTORY: None. FAMILY HISTORY: Noncontributory. SOCIAL HISTORY: Noncontributory. HOSPITAL COURSE: A 28-year-old male admitted with complaints of left shoulder pain, chest pain, and left upper quadrant pain. CT of the abdomen and pelvis revealed a splenic rupture with large left upper quadrant hematoma and surrounding hemorrhage and bilateral upper quadrant hemoperitoneum. Chest x-ray was negative. Surgery was consulted. The patient's hemoglobin dropped from 13.4-9.7. He was taken to the OR and had a splenic repair on 02/06/[address] Benitez. He had CHRISTINE drain placed. After the surgery, his diet was advanced slowly. His hemoglobin remained stable and pain was well controlled. At time of discharge, the patient is tolerating diet. Having bowel movement and pain is controlled. He will discharge home with a prescription for Tylenol 4 per Surgery recommendation. Vital signs stable. The patient is afebrile. He will follow up with primary care and Dr. Benitez in 1-2 weeks. Dictated by Debi Gonzalez NP MD [facility] /[id number]
== END 2019-02-10 12:30 | disposition home or self-care (01) | DRG 799 ==
LOC: ER 21:02 → ERHOLD 02-05 01:41 → ICU 02-05 02:28 → IMCU 02-08 21:11
PROVIDERS: ADMIT Internal Medicine; ATTEND Internal Medicine
PROC: 30233N1 Transfusion of Nonautologous Red Blood Cells into Peripheral Vein, Percutaneous Approach (ICD-10-PCS; 2019-02-05)
PROC: 30233L1 Transfusion of Nonautologous Fresh Plasma into Peripheral Vein, Percutaneous Approach (ICD-10-PCS; 2019-02-06)
PROC: 30233R1 Transfusion of Nonautologous Platelets into Peripheral Vein, Percutaneous Approach (ICD-10-PCS; 2019-02-06)
PROC: 30233K1 Transfusion of Nonautologous Frozen Plasma into Peripheral Vein, Percutaneous Approach (ICD-10-PCS; 2019-02-06)
PROC: 07QP0ZZ Repair Spleen, Open Approach (ICD-10-PCS; principal; 2019-02-06 07:00)
DX: D73.5 Infarction of spleen (principal); K66.1 Hemoperitoneum; D62 Acute posthemorrhagic anemia; R07.89 Other chest pain; Z88.0 Allergy status to penicillin; M25.512 Pain in left shoulder; F31.9 Bipolar disorder, unspecified; F32.9 Major depressive disorder, single episode, unspecified; R11.2 Nausea with vomiting, unspecified; E83.51 Hypocalcemia
CPT/HCPCS: 36415; 71046; 71260; 80048; 80053; 80307; 82550; 82553; 83735; 84484; 85025; 85379; 85610; 86308; 86644; 86645; 86850; 86900; 86920; 87071; 87075; 87205; 93005; 99284; J1100; J1170; J1885; J1956; J2001; J2060; J2250; J2270; J2405; J2550; J2765; J3010; J7030; J7050; J7121; P9016; P9017; P9034; Q9967